=== PATIENT | female | born 1995 | race Caucasian/White ===

== ENCOUNTER 2021-04-08 18:58 | Emergency (ER) | payer OTHER ==
[2021-04-08 19:53] LABS: RED BLOOD COUNT 4.64 M/UL (4.00-5.10); WHITE BLOOD COUNT 10.1 K/UL (4.5-11.0)
[2021-04-08 20:18] LABS: BUN/CREATININE RATIO 10 (0-10)
== END 2021-04-08 21:10 | disposition home or self-care (01) ==
LOC: ER1 18:58
PROVIDERS: Physician Assistant
DX: N93.9 Abnormal uterine and vaginal bleeding, unspecified (principal); F17.200 Nicotine dependence, unspecified, uncomplicated; Z88.5 Allergy status to narcotic agent; Z88.6 Allergy status to analgesic agent
CPT/HCPCS: 80053; 81001; 82150; 83690; 84703; 85025; 99284